=== PATIENT | male | born 1995 | race Caucasian/White ===

== ENCOUNTER 2020-05-20 12:32 | Outpatient (CLI) | payer BC, SELFPAY ==
--- NOTE | 2020-05-21 09:47 | WPDNEUROLOGY ---
Neurology EEG Report General Information Date of Study: 05/20/20 TEST EEG DIAGNOSIS near syncopal episode CONDITION OF RECORDING awake, drowsy and sleep EEG NUMBER [id number] CLINICAL HISTORY Complaints of near syncopal episode EEG DESCRIPTION basic resting occipital frequency consist of moderate amount of well-organized low to medium voltage 8 to 10 hertz per second alpha admixed with low-voltage 15 to 18 hertz per second beta activity. During drowsiness low-voltage beta activity is seen diffusely admixed with waxing and waning posterior alpha rhythm. Bilateral symmetrical sleep activity is seen during sleep with normal and symmetrical sleep spindles. photic stimulation produced normal drive. hyperventilation not done. Non paroxysmal. Nonfocal. Nonlateralizing. IMPRESSION Normal EEG
== END 2020-05-20 12:33 | disposition home or self-care (01) ==
PROVIDERS: PCP Physician Assistant; Visit Provider Physician Assistant
DX: R55 Syncope and collapse (principal)
CPT/HCPCS: 95816